=== PATIENT | female | born 1970 | race Caucasian/White ===

== ENCOUNTER 2020-11-28 07:37 | Emergency (ER) | payer OTHER ==
[~2020-11-28 07:37] MED LIST: ATARAX25 MG PO; BUSPAR5 MG PO; CYCLOBENZAPRINE10 MG PO; CYMBALTA60 MG PO; ELIQUIS5 M1 PO; LASIX20 MG PO; LOVENOX100 MG/1 M SC; MEDROL 4MG DOSEP4 MG PO; OXYCODONE HCL10 MG PO; OXYCODONE HCL5 M1 PO; PERCOCET 5-3251 EACH PO; PREDNISONE 20MG20 MG PO; SYNTHROID75 MCG PO; VENTOLIN HFA IN18 GM INH; ZOFRAN4 MG PO; ZOFRAN8 MG PO
== END 2020-11-28 09:54 | disposition left against medical advice (07) ==
LOC: FER 07:37
DX: M54.9 Dorsalgia, unspecified (principal); G89.29 Other chronic pain; K08.89 Other specified disorders of teeth and supporting structures; Z76.5 Malingerer [conscious simulation]; J45.909 Unspecified asthma, uncomplicated; Z88.5 Allergy status to narcotic agent; Z88.6 Allergy status to analgesic agent; Z88.1 Allergy status to other antibiotic agents; Z88.2 Allergy status to sulfonamides; Z91.041 Radiographic dye allergy status; Z53.8 Procedure and treatment not carried out for other reasons
CPT/HCPCS: 99283

== ENCOUNTER 2022-08-12 21:49 | Emergency (ER) | payer OTHER ==
[~2022-08-12 21:49] MED LIST changes: +CIPRO500 MG PO; +KETOCONAZOLE15 GM SC
[2022-08-13 00:48] LABS: BASOPHIL 0.6 % (0-2); BILIRUBIN NEGATIVE (NEGATIVE); BLOOD 3+ Ery/uL (NEGATIVE); CLARITY CLEAR (CLEAR); COLOR YELLOW (YELLOW); EOSINOPHIL 9.6 % (0-5); GLUCOSE (U) NORMAL (NORMAL); HCT 41.9 % (37.0-47.0); HGB 13.4 g/dl (12.5-16.0); LEUKOCYTES TRACE Leu/uL (NEGATIVE); LYMPHOCYTE 29.6 % (15-48); MCH 28.9 pg (25.0-31.0); MCV 90.3 fL (78.0-100.0); MONOCYTE 9.4 % (0-12); MPV 9.8 fL (6.0-9.5); NEUTROPHIL 50.4 % (41-80); NITRITE NEGATIVE (NEGATIVE); NRBC 0; PLT 181 K/uL (150-400); PROTEIN NEGATIVE (NEGATIVE); RBC 4.64 M/uL (4.20-5.40); RDW 12.3 % (11.5-14.0); SPECIFIC GRAVITY 1.015 (1.001-1.030); WBC 5.3 K/uL (4.0-10.5); pH 7.5 (5.0-9.0)
[2022-08-13 00:57] LABS: BACTERIA TRACE
[2022-08-13 00:59] LABS: ALBUMIN 3.8 g/dL (3.4-5.0); BILIRUBIN - TOTAL 0.4 mg/dL (0.2-1.0); BUN/CREAT RATIO (CALC) 16.7 RATIO; CREATININE 0.66 mg/dL (0.51-0.95); GLOBULIN (CALCULATION) 3.1 g/dL; POTASSIUM 4.1 mmol/L (3.5-5.1); TOTAL PROTEIN 6.9 g/dL (6.4-8.2)
[2022-08-13] MEDS ORDERED: ONDANSETRON ODT4 MG PO (01:24)
[2022-08-13] MEDS ORDERED: KEFLEX250 MG PO (01:24)
[2022-08-13] MEDS ORDERED: NORCO 5-325 TA1 EACH PO (01:24)
== END 2022-08-13 01:50 | disposition home or self-care (01) ==
LOC: FER 21:49
PROVIDERS: Emergency Medicine
DX: L03.116 Cellulitis of left lower limb (principal); N20.0 Calculus of kidney
CPT/HCPCS: 36415; 80053; 81001; 85025; 87088; J0696; J1170; J1885; J2405; J7030